=== PATIENT | male | born 1970 | race Caucasian/White ===

== ENCOUNTER 2023-01-02 13:17 | Inpatient (IN) ==
[2023-01-02] MEDS ORDERED: NORCO 5/325 MG TAB PO PRN (13:59)
[2023-01-02] MEDS ORDERED: NITROSTAT SL PRN (13:59)
[2023-01-02] MEDS ORDERED: HEPARIN SODIUM IN D5W 25,000 UNITS/500 ML BAG IV PRN (14:03)
[2023-01-02 14:47] LABS: BASOPHILS # (AUTO) 0.1 X10^3/uL (0.0-0.1); BASOPHILS % (AUTO) 0.7 % (0.2-1.0); EOSINOPHILS # (AUTO) 0.3 x10^3/uL (0.0-0.2); HEMATOCRIT 32.9 % (42.0-54.0); HEMOGLOBIN 11.4 g/dL (13.5-18.0); LYMPHOCYTES # (AUTO) 2.3 X10^3/uL (1.3-2.9); LYMPHOCYTES % (AUTO) 33.3 % (21.0-51.0); MEAN CORPUSCULAR HEMOGLOBIN 31.1 pg (27.0-34.0); MEAN CORPUSCULAR HGB CONC 34.5 g/dL (33.0-35.0); MEAN PLATELET VOLUME 8.1 fL (7.4-11.0); MONOCYTES # (AUTO) 0.5 x10^3/uL (0.3-0.8); MONOCYTES % (AUTO) 6.4 % (0.0-13.0); NEUTROPHILS # (AUTO) 3.9 x10^3/uL (2.2-4.8); NEUTROPHILS % (AUTO) 55.6 % (42.0-75.0); PLATELET COUNT 164 X10^3/uL (150.0-450.0); RED BLOOD COUNT 3.66 X10^6/uL (4.7-6.0); RED CELL DISTRIBUTION WIDTH 15.2 % (11.6-16.5)
[2023-01-02 14:49] VITALS: BMI 20.2
[2023-01-02 14:55] LABS: ALANINE AMINOTRANSFERASE 31 Units/L (12-78); ALBUMIN 3.5 g/dL (3.4-5.0); ALKALINE PHOSPHATASE 86 Units/L (46-116); ASPARTATE AMINO TRANSFERASE 30 Units/L (15-37); BLOOD UREA NITROGEN 16 mg/dL (7-18); CALCIUM 8.2 mg/dL (8.5-10.1); CARBON DIOXIDE 21.6 mmol/L (21-32); CHLORIDE 107 mmol/L (98-107); CREATININE 1.51 mg/dL (0.70-1.30); GLUCOSE 79 mg/dL (65-99); POTASSIUM 4.3 mmol/L (3.5-5.1); SODIUM 140 mmol/L (136-145); eGFR NON BLACK RACES 52 (>60)
--- NOTE | 2023-01-02 15:01 | EKG ---
Test Reason : pre op Blood Pressure : */* mmHG Vent. Rate : 60 BPM Atrial Rate : 60 BPM P-R Int : 180 ms QRS Dur : 84 ms QT Int : 402 ms P-R-T Axes : 74 28 88 degrees QTc Int : 402 ms Normal sinus rhythm Anterior infarct , age undetermined Abnormal ECG No previous ECGs available Confirmed by Calixto Plaza ([id number]) on 01/04/2023 4:29:24 PM Referred By: Confirmed By: Calixto Plaza
[2023-01-02] MEDS: LR 1,000 ML IV 1,000 ML IV SCH (15:23)
[2023-01-02] MEDS ORDERED: HEPARIN SODIUM INJ 5000 UNITS IVP ONE (15:37)
[2023-01-02] MEDS ORDERED: HEPARIN SODIUM INJ 5000 UNITS ONE (15:42)
[2023-01-02 17:06] LABS: INR 1.06 (0.8-1.3)
[2023-01-02] MEDS ORDERED: DESYREL PO SCH (21:00)
[2023-01-02] MEDS: DILAUDID INJ IVP PRN (23:00)
[2023-01-03] MEDS: LR 1,000 ML IV 1,000 ML IV SCH (03:23)
[2023-01-03] MEDS ORDERED: HEPARIN SODIUM INJ 5000 UNITS IVP ONE (04:48)
[2023-01-03] MEDS: DILAUDID INJ IVP PRN (05:18)
--- NOTE | 2023-01-03 06:01 | RAD ---
HISTORYPRE OP-CRITICAL ISCHEMIA RIGHT LOWER EXTREMITY Relevant Clinical InformationSTUDYCHEST, 1 VIEWCOMPARISONNoneFINDINGSThe trachea is midline. The cardiac silhouette is unremarkable. Median sternotomy wires with coronary artery stents. The lungs are clear without focal infiltrate or effusion. The bony thorax is unremarkable.IMPRESSIONNo acute cardiopulmonary findings .Electronically signed by: Jon Mcdonald (Jan 03, 2023 05:59:50)
[2023-01-03] MEDS ORDERED: ASPIRIN EC 81 MG PO SCH (09:00)
[2023-01-03] MEDS ORDERED: ISOSORBIDE MONONITRATE ER 24-HR PO SCH (09:00)
[2023-01-03] MEDS ORDERED: LIPITOR TAB 40 MG PO SCH (09:00)
[2023-01-03] MEDS ORDERED: CYMBALTA PO SCH (09:00)
[2023-01-03] MEDS ORDERED: KETAMINE 50 MG/5 ML-NACL SYRNG ONE (10:48)
[2023-01-03] MEDS ORDERED: DIPRIVAN VIAL 20 ML ONE ×2 (11:45→14:57)
[2023-01-03] MEDS ORDERED: VERSED ONE (11:46)
[2023-01-03] MEDS ORDERED: FENTANYL VIAL INJ 100 mcg ONE (11:46)
[2023-01-03] MEDS ORDERED: ZOFRAN INJ 4 MG VIAL ONE (11:47)
[2023-01-03] MEDS ORDERED: PEPCID 20 MG VIAL ONE ×2 (11:47→12:58)
[2023-01-03] MEDS ORDERED: OFIRMEV IV 1000 MG VIAL 1,000 MG/100 ML VIAL IV ONE (12:59)
[2023-01-03] MEDS ORDERED: MARCAINE 0.5% ONE (13:08)
[2023-01-03] MEDS ORDERED: HEPARIN SODIUM IN D5W 75,000 UNITS/1,500 ML BAG ONE (13:08)
[2023-01-03] MEDS ORDERED: NS 100 ML IV 100 ML ONE (13:15)
[2023-01-03] MEDS ORDERED: ANCEF VIAL 1 GRAM ONE (13:15)
[2023-01-03] MEDS ORDERED: LR 1,000 ML IV 1,000 ML IV ONE (13:15)
[2023-01-03] MEDS ORDERED: PRECEDEX INJ VIAL IVP ONE (13:44)
[2023-01-03] MEDS ORDERED: XYLOCAINE 2 % (PLAIN) ONE (13:44)
[2023-01-03] MEDS ORDERED: VISIPAQUE 100 ML ONE (14:01)
[2023-01-03] MEDS ORDERED: HEPARIN SODIUM INJ 5000 UNITS ONE (14:05)
[2023-01-03] MEDS ORDERED: XARELTO PO STA (15:41)
--- NOTE | 2023-01-03 15:50 | OR.IMMED ---
IMMEDIATE POST-OP NOTE Immediate Post-Op Note Date of surgery/procedure: 01/03/23 Pre-Op Diagnosis: Critical limb threatening ischemia right leg Post-Op Diagnosis: same Procedure: diagnostic aortogram, diagnostic arteriogram right leg, angioplasty right posterior tibial artery ,atherectomy , balloon dilatation and stenting of the right superficial femoral artery Description of Procedure: see dictation Surgeon/Apns: Mauricio Findings: completely occluded right superficial femoral artery with reconstitution of the distal superficial femoral artery , three vessel runoff and severe stenosis of the takeoff of the right posterior tibial artery Estimated Blood Loss: 150 cc Complications: none Progress Notes: patient return to the ICU . Will discontinue Heparin drip. Resume diet and po pain medications, begin Septra DS one pill BID. Plan discharge home later this evening. Follow up next week.
--- NOTE | 2023-01-03 16:19 | W.DIS.FURT ---
Summary of Discharge Discharge Summary of Date Date of Exam: 01/03/23 Admission Date Date of Admission: 01/02/23 Admission Diagnosis Hospital Course: This is a 52 year old male who presented to my office 01/02/2023 with evidence of acute ischemia of the right leg with non-healing wounds to the dorsum and the plantar surface with redness and severe pain. Patient is diabetic and a heavy smoker. I could palpate no pulse below the femoral artery. He was was referred by his bark skinner, Dr. Vela ,who had obtained a CT angiogram showing complete occlusion of the right superficial femoral artery beginning at it's take off with reconstitution of the popliteal artery and three vessel runoff . He was admitted and placed on Heparin drip. His pain was controlled with IV pain medications and he was taken to the operating Suite the following day where we found severe stenosis of the takeoff of the left put in beat adjuster tibila artery and completely occluded right superficial femoral artery . Other runoff vessels were normal. We performed angioplasty of the take-off of the right posterior tibial artery, atherectomy, balloon angioplasty and drug-coated stenting of the right reestablishing flow. He'll be discharged home on his usual medications. He will continue his diabetic diet. He will be placed on daily aspirin 81 mg by mouth and Xarelto 2.5 mg BID. He will follow up with me in one week. Because of the redness of the dorsal wound of the right foot we will place him on Sceptre dies, one by mouth BID x 10 days. Vital Signs: Vital Signs (72 hours) 01/02/23 14:51 01/02/23 15:00 01/02/23 14:33 Temperature 97.9 F Pulse Rate 82 108 H Respiratory Rate 24 24 Blood Pressure 147/69 O2 Sat by Pulse Oximetry 100 100 Oxygen Delivery Method Room Air Room Air 01/02/23 14:45 01/02/23 15:24 01/02/23 15:00 Temperature 97.9 F Pulse Rate 61 121 H Respiratory Rate 16 15 16 Blood Pressure O2 Sat by Pulse Oximetry 99 100 Oxygen Delivery Method 01/02/23 15:02 01/02/23 15:02 01/02/23 15:15 Temperature Pulse Rate 71 60 Respiratory Rate 13 14 Blood Pressure 147/69 O2 Sat by Pulse Oximetry 100 99 Oxygen Delivery Method 01/02/23 15:30 01/02/23 15:45 01/02/23 16:00 Temperature Pulse Rate 63 61 79 Respiratory Rate 13 13 20 Blood Pressure O2 Sat by Pulse Oximetry 98 99 99 Oxygen Delivery Method 01/02/23 16:24 01/02/23 16:15 01/02/23 16:16 Temperature Pulse Rate 62 Respiratory Rate 15 18 Blood Pressure 139/64 O2 Sat by Pulse Oximetry 100 Oxygen Delivery Method 01/02/23 16:16 01/02/23 16:30 01/02/23 16:45 Temperature Pulse Rate 62 60 61 Respiratory Rate 17 13 13 Blood Pressure O2 Sat by Pulse Oximetry 100 99 100 Oxygen Delivery Method 01/02/23 17:00 01/02/23 17:15 01/02/23 17:30 Temperature Pulse Rate 60 62 60 Respiratory Rate 13 17 17 Blood Pressure O2 Sat by Pulse Oximetry 99 99 100 Oxygen Delivery Method 01/02/23 17:48 01/02/23 18:00 01/02/23 19:00 Temperature Pulse Rate 175 H 85 58 L Respiratory Rate 34 H 26 H 14 Blood Pressure 147/60 117/56 O2 Sat by Pulse Oximetry 97 99 98 Oxygen Delivery Method Room Air 01/02/23 19:00 01/02/23 20:00 01/02/23 21:00 Temperature 98.2 F Pulse Rate 56 L 55 L Respiratory Rate 21 15 Blood Pressure 126/60 112/51 O2 Sat by Pulse Oximetry 100 100 Oxygen Delivery Method Room Air Room Air Room Air 01/02/23 23:00 01/02/23 22:00 01/02/23 23:00 Temperature Pulse Rate 58 L 60 Respiratory Rate 20 26 H 18 Blood Pressure 128/59 123/60 O2 Sat by Pulse Oximetry 100 100 Oxygen Delivery Method Room Air Room Air 01/03/23 00:00 01/02/23 23:30 01/03/23 01:00 Temperature 98.5 F Pulse Rate 56 L 54 L Respiratory Rate 12 12 10 L Blood Pressure 124/58 123/53 O2 Sat by Pulse Oximetry 100 99 Oxygen Delivery Method Room Air Room Air 01/03/23 02:00 01/03/23 03:00 01/03/23 05:18 Temperature Pulse Rate 52 L 51 L Respiratory Rate 10 L 10 L 10 L Blood Pressure 113/56 128/59 O2 Sat by Pulse Oximetry 98 99 Oxygen Delivery Method Room Air Room Air 01/03/23 04:00 01/03/23 05:00 01/03/23 05:48 Temperature 97.7 F Pulse Rate 51 L 57 L Respiratory Rate 12 14 10 L Blood Pressure 118/56 132/63 O2 Sat by Pulse Oximetry 99 99 Oxygen Delivery Method Room Air Room Air 01/03/23 06:00 01/03/23 07:00 01/03/23 07:00 Temperature Pulse Rate 55 L 55 L Respiratory Rate 13 13 Blood Pressure 115/57 124/58 O2 Sat by Pulse Oximetry 95 98 Oxygen Delivery Method Room Air Room Air Room Air 01/03/23 08:00 01/03/23 09:00 01/03/23 10:00 Temperature 98.3 F Pulse Rate 52 L 51 L 54 L Respiratory Rate 12 12 19 Blood Pressure 126/62 128/61 152/59 O2 Sat by Pulse Oximetry 98 99 99 Oxygen Delivery Method Room Air Room Air Room Air 01/03/23 11:00 01/03/23 12:35 01/03/23 13:05 Temperature 98.0 F 97.9 F Pulse Rate 54 L 58 L 65 Respiratory Rate 18 19 18 Blood Pressure 123/56 150/70 155/72 O2 Sat by Pulse Oximetry 98 99 99 Oxygen Delivery Method Room Air Room Air Room Air Labs: Laboratory Last Values WBC 7.0 X10^3/uL (3.6-10.0) 01/02/23 14:36 RBC 3.66 X10^6/uL (4.7-6.0) L 01/02/23 14:36 Hgb 11.4 g/dL (13.5-18.0) L 01/02/23 14:36 Hct 32.9 % (42.0-54.0) L 01/02/23 14:36 MCV 90.0 fL (80.0-100.0) 01/02/23 14:36 MCH 31.1 pg (27.0-34.0) 01/02/23 14:36 MCHC 34.5 g/dL (33.0-35.0) 01/02/23 14:36 RDW 15.2 % (11.6-16.5) 01/02/23 14:36 Plt Count 164 X10^3/uL (150.0-450.0) 01/02/23 14:36 MPV 8.1 fL (7.4-11.0) 01/02/23 14:36 Neut % (Auto) 55.6 % (42.0-75.0) 01/02/23 14:36 Lymph % (Auto) 33.3 % (21.0-51.0) 01/02/23 14:36 [place] % (Auto) 6.4 % (0.0-13.0) 01/02/23 14:36 Eos % (Auto) 4.0 % (0.9-2.9) H 01/02/23 14:36 Baso % (Auto) 0.7 % (0.2-1.0) 01/02/23 14:36 Neut # (Auto) 3.9 x10^3/uL (2.2-4.8) 01/02/23 14:36 Lymph # (Auto) 2.3 X10^3/uL (1.3-2.9) 01/02/23 14:36 [place] # (Auto) 0.5 x10^3/uL (0.3-0.8) 01/02/23 14:36 Eos # (Auto) 0.3 x10^3/uL (0.0-0.2) H 01/02/23 14:36 Baso # (Auto) 0.1 X10^3/uL (0.0-0.1) 01/02/23 14:36 Absolute Nucleated RBC 0.0 /100WBC 01/02/23 14:36 PT 13.7 SECONDS (11.8-14.3) 01/02/23 14:36 INR Target Range - 01/02/23 14:36 INR 1.06 (0.8-1.3) 01/02/23 14:36 APTT 61.6 SECONDS (22.9-36.5) H 01/03/23 03:58 PTT Comment - 01/03/23 03:58 Sodium 140 mmol/L (136-145) 01/02/23 14:36 Corrected Sodium TNP 01/02/23 14:36 Potassium 4.3 mmol/L (3.5-5.1) 01/02/23 14:36 Chloride 107 mmol/L (98-107) 01/02/23 14:36 Carbon Dioxide 21.6 mmol/L (21-32) 01/02/23 14:36 BUN 16 mg/dL (7-18) 01/02/23 14:36 Creatinine 1.51 mg/dL (0.70-1.30) H 01/02/23 14:36 Est GFR (MDRD) Af Amer > 60 (>60) 01/02/23 14:36 Est GFR (MDRD) Non-Af 52 (>60) L 01/02/23 14:36 Glucose 79 mg/dL (65-99) 01/02/23 14:36 POC Glucose (mg/dL) 85 mg/dL (65-99) 01/03/23 12:44 Calcium 8.2 mg/dL (8.5-10.1) L 01/02/23 14:36 Corrected Calcium TNP 01/02/23 14:36 Total Bilirubin 0.40 mg/dL (0.2-1.0) 01/02/23 14:36 AST 30 Units/L (15-37) 01/02/23 14:36 ALT 31 Units/L (12-78) 01/02/23 14:36 Alkaline Phosphatase 86 Units/L (46-116) 01/02/23 14:36 Total Protein 7.0 g/dL (6.4-8.2) 01/02/23 14:36 Albumin 3.5 g/dL (3.4-5.0) 01/02/23 14:36 Globulin 3.5 g/dL (2.5-4.5) 01/02/23 14:36 Albumin/Globulin Ratio 1.0 Ratio (1.1-2.1) L 01/02/23 14:36 Reason For Visit: CRITICAL ISCHEMIA RIGHT LOWER EXTREMITY Discharge Date Discharge Date: 01/03/23 Discharge Diagnosis All Active Problems (Updated 01/03/23 @ 16:04 by Mann Martínez) Atherosclerosis of [place] arteries of extremities with rest pain, right leg (Acute) Essential hypertension (Acute) Hyperglycemia (Acute) Chest pain, rule out acute myocardial infarction (Acute) Plan of Treatment: Continue with present treatment and follow up plan. Pt is to keep follow up appointment as instructed and take medications as ordered. Discharge Medications Discharge Medications: No Known Drug Allergies Allergy (Verified 09/15/20 11:09) CONTINUE taking the following medications acetaminophen 300 mg-codeine 30 mg tablet 325 tab PO HS 01/02/23 [History] cholestyramine-aspart[place] oral powder 4 ea PO BID 01/02/23 [History] gabapentin 800 mg tablet 800 mg PO TID 01/02/23 [History] semaglutide 0.25 mg or 0.5 mg (2 mg/3 mL) subcutaneous pen injector (Ozempic) 2 mg subcut WEEKLY 01/02/23 [History] sulfamethoxazole 400 mg-trimethoprim 80 mg tablet 1 tab PO BID 01/02/23 [History] tamsulosin 0.4 mg capsule 0.4 mg PO HS 01/02/23 [History] tramadol 50 mg tablet 50 mg PO TID PRN pain 01/02/23 [History] Xarelto 2.5 mg po BID Percocet 5 mg , 1 po q 6r PRn pain, #30 Septra DS 1 po BID x 10 days Discharge Disposition Assessment: see hospital course Discharge Plan Discharge Plan Hospital Course: This is a 52 year old male who presented to my office 01/02/2023 with evidence of acute ischemia of the right leg with non-healing wounds to the dorsum and the plantar surface with redness and severe pain. Patient is diabetic and a heavy smoker. I could palpate no pulse below the femoral artery. He was was referred by his bark skinner, Dr. Vela ,who had obtained a CT angiogram showing complet e occlusion of the right superficial femoral artery beginning at it's take off with reconstitution of the popliteal artery and three vessel runoff . He was admitted and placed on Heparin drip. His pain was controlled with IV pain medications and he was taken to the operating Suite the following day where we found severe stenosis of the takeoff of the left put in beat adjuster tibila artery and completely occluded right superficial femoral artery . Other runoff vessels were normal. We performed angioplasty of the take-off of the right posterior tibial artery, atherectomy, balloon angioplasty and drug-coated stenting of the right reestablishing flow. He'll be discharged home on his usual medications. He will continue his diabetic diet. He will be placed on daily aspirin 81 mg by mouth and Xarelto 2.5 mg BID. He will follow up with me in one week. Because of the redness of the dorsal wound of the right foot we will place him on Sceptre dies, one by mouth BID x 10 days. Patient Disposition: 01 HOME, SELF-CARE Condition: Stable Health Concerns: Post Hospitalization: new medications and changes needed to prevent readmission or further decline. Pt educated and given instructions on all concerns. Care Plan Goals: stop smoking , healing right foot wounds , return to walking Plan of Treatment: Continue with present treatment and follow up plan. Pt is to keep follow up appointment as instructed and take medications as ordered. Assessment: see hospital course Prescription drug monitoring program results: PDMP reviewed and no concerns identified Prescriptions: New sulfamethoxazole-trimethoprim [Bactrim DS] 800-160 mg tablet 1 tab PO BID Qty: 20 0RF Xarelto 2.5 mg tablet 2.5 mg PO BID Qty: 180 0RF oxycodone-acetaminophen [Percocet] 5-325 mg tablet 1 tab PO Q6H MDD 6 PRNQty: 30 0RF Continued clopidogrel [Plavix] 75 MG tablet 75 mg PO DAILY nitroglycerin [Nitrostat] 0.4 MG tablet, sublingual 0.4 mg Sublingual PRN PRN (Reason: Angina (Chest Pain)) acetaminophen-codeine 1 TAB tablet 325 tab PO HS Rx Instructions: For 30 days. Prescribed on 12/31/22 tramadol 50 mg tablet 50 mg PO TID PRN (Reason: pain) gabapentin 800 mg Tablet 800 mg PO TID sulfamethoxazole-trimethoprim 400-80 mg tablet 1 tab PO BID tamsulosin 0.4 mg Capsule 0.4 mg PO HS Ozempic 0.25 mg or 0.5 mg (2 mg/3 mL) Pen Injector 2 mg SUBCUT WEEKLY cholestyramine-aspartame Powder 4 ea PO BID Follow ups/Referrals Follow ups/Referrals: [facility],None [Primary Care Provider] - 1 WEEK Instructions Instructions: Endovascular Therapy for Peripheral Vascular Disease, Care After Stand Alone Forms: Excuse From Work or School, Post Hospital Follow Up Care
[2023-01-03 16:33] VITALS: TEMP 97.5
--- NOTE | 2023-01-03 17:12 | DR.OPNOTE ---
OP NOTE Pre-Op Diagnosis: Critical limb threatening ischemia right leg Post-Op Diagnosis: same Procedure Date Date Of Procedure: 01/03/23 Procedure: PROCEDURE: DIAGNOSTIC AORTOGRAM, DIAGNOSTIC ARTERIOGRAM RIGHT LEG,ANGIOPLASTY RIGHT POSTERIOR TIBIAL ARTERY TAKEOFF, ATHERECTOMY, ANGIOPLASTY AND DRUG COATED STENT PLACEMENT RIGHT SUPERFICIAL FEMORAL ARTERY X 2 . NARRATIVE : The patient was taken to the operative suite and place in the supine position. The left groin and entire right leg were prepped and draped in sterile fashion. The patient was given intravenous sedation supervised by myself. Time out for the procedure obtained. Ultrasound used to identify the left femoral artery and the skin overlying it infiltrated with 0.5% Marcaine. Ultrasound then used to guide puncture of the left femoral artery and a 0.012 inch guide wire was placed. Incision made over the guide wire at the skin edge with a # 11 knife blade and a micro sheath placed over the guide wire into the left femoral artery The small guidewire exchanged for a 0.035 inch Advantage glide wire and the micro sheath exchanged for a 5 Fr vascular sheath. Patient given 5000 units of intravenous heparin. Omni catheter was placed over the guide wire into the aorta and diagnostic aortogram carried out with the power injector showing normal aorta with normal iliac arteries bilaterally. Omni catheter was used to steer the guide wire down the right common iliac artery to the distal right external iliac artery . Omni catheter was exchanged for a [place] catheter and sequential arteriograms carried out of the right lower extremity showing completely occluded right superficial femoral artery beginning at its origin with reconstitution of the distal right superficial femoral artery and three vessel run off to the right ankle with severe stenosis of the takeoff of the right posterior tibial artery. The 5 Fr sheath in the left groin then exchanged for a 7 Fr Catapult sheath which was parked in the distal right external iliac artery. [place] catheter and the guide wire were used to traverse the arteries of the right leg ultimately ending in the right distal posterior tibial artery crossing the severe stenosis of the right proximal posterior tibial artery . This was selective catheterization. 0.035 inch wire removed and exchanged for a 0.014 inch wire. Over this wire we placed the [place] atherectomy device and performed atherectomy of the right superficial femoral artery but we could not get completely across the occlusion with the Jet stream device . Therefore, at this point we performed angioplasty balloon pre- dilatation of the entire occluded area of the right superficial femoral artery using a 4 mm by 150 mm [employer] Bertha balloon. Once this was done we then placed a 3 mm x 80 mm Bertha balloon across the area of stenosis of the proximal right posterior tibial artery and inflated it for 1 minute. Post procedure arteriogram showed excellent results. Over the wire we then placed an Shelly 6 mm by 150 mm [employer] drug-coated stent extending proximally from the patent distal superficial femoral artery and added an additional 6 mm x 150 mm Shelly drug coated stent extending to the takeoff of the right s uperficial femoral artery with minimal overlap with the first stent . This covered the entire area of occlusion of the superficial femoral artery and both stents balloon dilated with a 5 mm by 200 mm [employer] [place] balloon. Post-procedure arteriogram showed excellent results. At the completion of this a follow up arteriogram showed excellent results with uninterrupted arterial flow all the way to the ankle. All wires and devices removed. The 7 Fr sheath was pulled back into the aorta and a 0.035 inch wire placed. The destination sheath exchanged for an Angioseal device used to close the puncture of the left femoral artery. .Dressing applied to the left groin. The patient takien to same day surgery in good condition. Type of Anesthesia: Local (0.5% marcaine ) Anesthesia Comment: plus MAC Findings: severe stenosis at the take-off of the right posterior tibial artery. Otherwise three-vessel run off to the right ankle , completely occluded right superficial femoral artery beginning at it's take off with reconstitution of the distal superficial femoral artery Type of Fluids Used:: Lactated Ringers Total Amount of Fluid Infused:: 700 cc Urine output: 400 cc EBL: 150 cc Hardware: Shelly 6 mm by 150 mm drug coated stents x 2 placed end-to-end in the right superficial femoral artery with minimal overlap. Complications:: none Needle/Sponge Count:: correct Disposition/Condition: Pt. tolerated procedure without difficulty. Extubated in the OR and taken to [facility] in stable condition.
[2023-01-03 17:27] VITALS: BP 124/59; PULSE 57; RESP 18; O2SAT 99
--- NOTE | 2023-01-08 18:23 | DR.UPDATE ---
H&P UPDATE Review Yes Any changes to H&P?: Yes Changes noted:: update for admission 01/02/2023
== END 2023-01-03 17:15 | disposition home or self-care (01) | DRG 272 ==
LOC: ICU 13:23
PROVIDERS: ADMIT Surgery; ATTEND Surgery
DX: I70.221 Atherosclerosis of native arteries of extremities with rest pain, right leg; Z72.0 Tobacco use; J44.9 Chronic obstructive pulmonary disease, unspecified; I25.2 Old myocardial infarction; I10 Essential (primary) hypertension; E78.5 Hyperlipidemia, unspecified